=== PATIENT | female | born 1950 | race Caucasian/White ===

== ENCOUNTER 2018-01-22 19:22 | Emergency (ER) | payer OTHER ==
[~2018-01-22] VITALS: Ht 157.5 cm; Wt 40.8 kg
[2018-01-22 20:01] LABS: Basophils # (auto) 0.1 uL; Basophils % (auto) 0.6 % (0.0-2.0); Eosinophils # (auto) 0.1 uL; Eosinophils % (auto) 0.5 % (0.0-7.0); Monocytes # (auto) 0.6 uL; Neutrophils # (auto) 6.3 uL; White Blood Cell 10.5 10^3/uL (4.4-10.8)
[2018-01-22 20:03] LABS: Hematocrit 51.1 % (36.0-46.0); Hemoglobin 17.8 g/dL (12.2-16.2); Lymphocytes # (auto) 3.4 uL; Lymphocytes % (auto) 32.6 % (10.0-50.0); Mean Corpuscular Hemoglobin 32.5 pg (28.0-32.0); Mean Corpuscular Hgb Conc. 34.9 g/dL (32.0-36.0); Monocytes % (auto) 5.9 % (0.0-12.0); Neutrophils % (auto) 60.4 % (37.0-80.0); Nucleated Red Blood Cells % 0.2 %; Platelet Count (auto) 285 10^3/uL (140-450); Red Cell Distribution Width 13.5 % (11.8-14.3)
[2018-01-22 20:22] LABS: Albumin 3.6 g/dL (3.4-5.0); Calcium 8.7 mg/dL (8.5-10.1); Potassium 4.2 mmol/L (3.5-5.1)
[2018-01-22 20:30] LABS: Bilirubin, Total 0.4 mg/dL (0.2-1.0)
[2018-01-22 20:40] LABS: BUN/Creatinine Ratio 13.5
[2018-01-22] MEDS: SODIUM CHLORIDE 0.9% 1,000 ML IV ONE ×2 (20:44→20:58)
[2018-01-22] MEDS ORDERED: ACETAMINOPHEN 325 MG TAB PO ONE (21:00)
[2018-01-22] MEDS ORDERED: ceFAZolin 1GM/50ML 50 ML IV ONE (21:45)
[2018-01-23 00:30] VITALS: BP 137/84
== END 2018-01-23 00:31 | disposition short-term general hospital (02) ==
LOC: ER 19:22 → EDBD 19:22 → ER 01-23 00:31
DX: S02.2XXA Fracture of nasal bones, initial encounter for closed fracture (principal); S02.82XA Fracture of other specified skull and facial bones, left side, initial encounter for closed fracture; F10.129 Alcohol abuse with intoxication, unspecified; J44.9 Chronic obstructive pulmonary disease, unspecified; F17.210 Nicotine dependence, cigarettes, uncomplicated; W18.39XA Other fall on same level, initial encounter; Y93.89 Activity, other specified; Y99.8 Other external cause status; Y92.098 Other place in other non-institutional residence as the place of occurrence of the external cause
CPT/HCPCS: 36415; 70450; 70486; 72125; 80053; 80320; 85025; 94761; 96365; 99285; J0690

== ENCOUNTER 2023-09-25 09:13 | Emergency (ER) | payer OTHER ==
[~2023-09-25] VITALS: Ht 152.4 cm; Wt 36.3 kg
[2023-09-25 09:40] VITALS: PULSE 91; RESP 19; O2SAT 95
[2023-09-25] MEDS: SODIUM CHLORIDE 0.9% 1,000 ML IV ONE (09:45)
[2023-09-25 10:02] LABS: Basophils # (auto) 0.1 10 ^3/uL (0-0.2); Basophils % (auto) 0.4 % (0.0-2.0); Eosinophils # (auto) 0 10 ^3/uL (0-0.8); Hematocrit 45.6 % (36.0-46.0); Hemoglobin 15.3 g/dL (12.2-16.2); Lymphocytes % (auto) 5.3 % (10.0-50.0); Mean Corpuscular Hemoglobin 31.4 pg (28.0-32.0); Mean Corpuscular Hgb Conc. 33.5 g/dL (32.0-36.0); Mean Corpuscular Volume 93.6 fL (80.0-100.0); Monocytes # (auto) 1.9 10 ^3/uL (0-1.3); Monocytes % (auto) 10.6 % (0.0-12.0); Neutrophils % (auto) 83.7 % (37.0-80.0); Nucleated Red Blood Cells % 0.1 %; Red Blood Cells 4.88 10^6/uL (4.0-5.20); Red Cell Distribution Width 14.2 % (11.8-14.3); White Blood Cell 17.9 10^3/uL (4.4-10.8)
[2023-09-25 10:10] LABS: Chloride 102 mmol/L (98-107); Potassium 3.8 mmol/L (3.5-5.1); Sodium 135 mmol/L (136-145)
[2023-09-25 10:11] LABS: Anion Gap 10 (5-15); Carbon Dioxide 23 mmol/L (20-30)
[2023-09-25 10:12] LABS: Calcium 9.8 mg/dL (8.5-10.1)
[2023-09-25 10:16] LABS: BUN/Creatinine Ratio 31.5 (10.0-20.0); Blood Urea Nitrogen 17 mg/dL (9-23); Glucose 106 mg/dL (74-106)
[2023-09-25] MEDS: cefTRIAXone 1GM/50ML D5W 50 ML IV ONE (13:06)
[2023-09-25] MEDS: AZITHROMYCIN 500MG/ 250ML 250 ML IV ONE (13:58)
[2023-09-25 14:55] VITALS: BP 119/73; PULSE 68; RESP 22; TEMP 99; O2SAT 96
[2023-09-25] MEDS ORDERED: MANNITOL 20% SOLN 100 gm/500ml 125 ML IV SCH (18:00)
== END 2023-09-25 13:39 | disposition short-term general hospital, planned readmission (82) ==
LOC: ER 09:13 → EDBD 09:13 → ER 13:39
DX: S06.5X0A Traumatic subdural hemorrhage without loss of consciousness, initial encounter (principal); J44.1 Chronic obstructive pulmonary disease with (acute) exacerbation; F17.210 Nicotine dependence, cigarettes, uncomplicated; F12.10 Cannabis abuse, uncomplicated; F10.10 Alcohol abuse, uncomplicated; W18.39XA Other fall on same level, initial encounter; Y93.89 Activity, other specified; Y92.89 Other specified places as the place of occurrence of the external cause; Y99.8 Other external cause status
CPT/HCPCS: 36415; 70450; 72170; 80048; 84484; 85025; 93005; 96361; 96365; 96367; 99291; J0456; J0696; J7030